=== PATIENT | male | born 2000 | race Hispanic/Latino ===

== ENCOUNTER 2018-07-20 19:46 | Emergency (ER) | payer OTHER ==
[2018-07-20 20:33] LABS: RAPID GROUP A STREP NEGATIVE (NEGATIVE)
[2018-07-20] MEDS ORDERED: DEXAMETHASONE SOD PHOSPHATE 10MG/ML 1ML VIAL ONE (20:44)
== END 2018-07-20 20:59 | disposition home or self-care (01) ==
LOC: EDH 19:46
DX: J02.0 Streptococcal pharyngitis (principal); Z72.0 Tobacco use
CPT/HCPCS: 87804 ×2; 87880; 96372; 99283; J1100